=== PATIENT | female | born 1935 ===

== ENCOUNTER 2021-04-19 13:35 | Inpatient (IN) | payer MEDICARE, BC ==
[~2021-04-19] VITALS: Ht 162.6 cm; Wt 53.8 kg
[2021-05-19] VITALS (11 sets, daily range): BP systolic 114–156; BP diastolic 61–88; PULSE 52–90; TEMP 97.1–98.1
[2021-05-19] MEDS ORDERED: MASON NATURAL1200 MG PO (06:06)
[2021-05-19] MEDS ORDERED: PRINZIDE 12.5 M1 TA1 PO (06:06)
[2021-05-19] MEDS ORDERED: CALCIUM-500 5001 CTB PO (06:07)
[2021-05-19] MEDS ORDERED: PROBIOTIC BLEN1 EACH PO (06:07)
[2021-05-19] MEDS ORDERED: VITAMIN B125000 MCG PO (06:08)
[2021-05-19] MEDS ORDERED: PROLIA60 MG/ML SQ (06:09)
--- NOTE | 2021-05-19 06:48 | NUR ---
Dr. Smith was notifed of the patient's potential cross allergy to celebrex due to her sulfa allergy. The paient has not taken motrin to know if she has a reaction. Dr. Smith verbalized understanding and wants to hold the pre op celebrex.
--- NOTE | 2021-05-19 06:50 | NUR ---
The patient ambulated back to [facility] independently using a steady gait and appeared to tolerate the activiyt well. Vital signs obtained. Consent signed. 18G IV started in left hand on second attempt with LR infusing without difficulty. Flagyl IV started per [facility] protocol. Assessment completed. Call light is within reach. Sister brought back to be at her bedside. Warm blankets provided. The patient denies any further needs at this time. Will continue to monitor the patient.
--- NOTE | 2021-05-19 07:00 | NUR ---
The patient was taken over to the recovery room to have a nerve block placed pre operatively. The patient's chart was sent with her. The patient's belongigns were taken to the recovery room and will be transferred with the patient to the 3rd floor post operatively. The patient's sister took the patient's purse with her.
--- NOTE | 2021-05-19 12:04 | NUR ---
PT TO ROOM 328 PER BED WITH REPORT FROM [facility] PACU @2270. PT IS DROWSEY BUT AROUSES TO VERBAL. EYE LIDS SWOLEN AND CREPITICE THROUGHOUT BODY. AWARE. VSS, ABDOMINAL INCISIONS CDI WITH BANDAIDS OVER LAP SITES AND MEDIPORE TAPE OVER MIDLINE INCISIONS. IV TO PUMP PER ORDERS.
--- NOTE | 2021-05-19 23:29 | NUR ---
PATIENT ALERT AND ORIENTED. STATES SHE IS HAVING GAS PAIN AND PRN TYLENOL IS GIVEN. PATIENT AMBULATED IN GALE WITH STANDBY ASSIST. X5 LAPS CDI WITH BANDAIDS, LOW TRANSVERSE CDI WITH MEDIPORE TAPE. FORD TO DD WITH MINIMAL CLEAR YELLOW URINE OUTPUT. IV TO L HAND INFUSING LR @ 150 ML/HR. DISCUSSED WITH PATIENT PLAN TO INT AND DC LOGAN IN AM.
[2021-05-20] VITALS (7 sets, daily range): BP systolic 121–176; BP diastolic 52–70; PULSE 66–80; TEMP 97.3–98.3
--- NOTE | 2021-05-20 06:32 | NUR ---
PATIENT IV TO INT PER ORDER AND TOLERATING PO FLUIDS. FORD CATHETER DC'D PER PROTOCOL, 10 ML REMOVED FROM BALLOON. PATIENT RESTING IN BED.
[2021-05-20 07:10] LABS: BASO % 0.2 % (0.0-2.0); EOS % 0.1 % (0.0-4.0); GRAN # 6.3 K/mm3 (1.4-6.5); GRAN % 73.8 % (42.2-75.2); HEMOGLOBIN 11.4 g/dl (12.5-16.0); LYMPH # 1.4 K/mm3 (1.2-3.4); LYMPH % 16.7 % (20.0-51.0); MEAN CELL VOLUME 93 fl (80.0-100.0); MEAN CORPUSCULAR HEMOGLOBIN 30 pg (27-31); MEAN CORPUSCULAR HGB CONC 32 g/dl (33.0-37.0); MEAN PLATELET VOLUME 11.3 fl (7.4-10.4); MONO # 0.8 K/mm3 (0.1-0.6); MONO % 8.8 % (1.7-9.3); PLATELET COUNT 232 K/mm3 (130-400); RED BLOOD COUNT 3.86 M/mm3 (4.10-5.30); REDCELL DISTRIBUTION WIDTH-CV 12.8 % (11.5-14.5)
[2021-05-20 07:12] LABS: CALCIUM 8.4 mg/dL (8.4-10.2); CREATININE, serum 1.05 mg/dL (0.57-1.11); POTASSIUM 3.5 mmol/L (3.5-4.5)
--- NOTE | 2021-05-20 08:00 | NUR ---
Patient sitting up in the recliner, A&Ox4. VSS. IV CDI. Denies pain. Independent in the room. Lap sites abd CDI. Crepitus felt under the eyes and in the chest, reports discomfort r/t the crepitus. No further needs expressed. Call light within reach
--- NOTE | 2021-05-20 10:14 | NUR ---
propeller layout worker met with patient to discuss discharge plan. Patient states that she lives at home alone. She is fully independent with her activities of daily living and does not utilize any DME at home. She reports she does have a cane at home but doesnt need it. Patient has no oxygen needs at home. PCP is Dr. Oquendo and she utilizes [facility] in for medications with no cost difficulty. Patient reports that she knows she has a living will on file with hospital but is unsure of a DPOA-HC. Patient only has one son names Tam ([phone]) who lives in [place], [place]. Patient's sister Monie ([phone]) is in [facility] and is planning to stay with the patient through the weekend. Patient is planning on returning home and states that her sister will be picking her up. Discharge plan: Home with family.
--- NOTE | 2021-05-20 10:17 | NUR ---
Initial visit; Patient thanked Plant Maintenance Mechanic for looking in on her, listening and offering prayer and encouragement.
--- NOTE | 2021-05-20 18:04 | NUR ---
Patient independent in the room. A&Ox4. VSS IV CDI. Denies pain, reports some discomfort from crepitus, doctor aware. Incisions abd CDI. Had some loose stools. Ambulates in the hallway independently with nursing staff. No further needs expressed. Call light within reach.
--- NOTE | 2021-05-20 21:00 | NUR ---
PT UP TO BR INDEPENDENTLY. C/O CREPITUS DISCOMFORT. SCHEDULED ES TYLENOL GIVEN. VOIDING W/O DIFFICULTY.
[2021-05-21 03:31] VITALS: BP 163/75; BP 194/77; PULSE 70; TEMP 98.6
[2021-05-21 07:38] VITALS: BP 151/82; PULSE 74
--- NOTE | 2021-05-21 09:31 | NUR ---
PT INDENPENDENT IN ROOM AND HALLS AMBULATING AD CHAYO. PT DENIES PAIN OR NEEDS AT THIS TIME. VSS. A/OX4.
--- NOTE | 2021-05-21 10:14 | NUR ---
Follow-up visit; Patient appears to enjoy visits and thanked Principal Bioinformatics Specialist for listening and offering God's blessings and keeping her in Principal Bioinformatics Specialist's prayers.
[2021-05-21] MEDS ORDERED: ROXICODONE 55 MG/TAB PO (11:03)
[2021-05-21] MEDS ORDERED: TYLENOL 500MG500 MG PO (11:04)
[2021-05-21 12:05] VITALS: BP 140/64; PULSE 81; TEMP 97.5
--- NOTE | 2021-05-21 13:23 | NUR ---
DISCHARGE INSTRUCTIONS REVIEWED WITH PATIENT AND FAMILY. QUESTIONS SOLICITED AND ANSWERED. PT DENIES PAIN AT DISCHARGE. PT LEFT PER WHEEL CHAIR WITH STAFF.
== END 2021-05-21 13:25 | disposition home or self-care (01) | DRG 331 ==
LOC: INPTSU 05-19 05:43 → SURG 05-19 07:30
PROVIDERS: ADMIT Surgery
PROC: 8E0W4CZ Robotic Assisted Procedure of Trunk Region, Percutaneous Endoscopic Approach (ICD-10-PCS; 2021-05-19)
PROC: 0DTN4ZZ Resection of Sigmoid Colon, Percutaneous Endoscopic Approach (ICD-10-PCS; principal; 2021-05-19 07:30)
DX: K57.20 Diverticulitis of large intestine with perforation and abscess without bleeding (principal); N83.291 Other ovarian cyst, right side; I10 Essential (primary) hypertension; M81.0 Age-related osteoporosis without current pathological fracture; Z88.0 Allergy status to penicillin; Z88.2 Allergy status to sulfonamides
CPT/HCPCS: A4314; A9284; J0690; J1100; J1650; J2250; J2405; J2704; J2795; J3010; J7120